=== PATIENT | male | born 1995 | race Caucasian/White ===

== ENCOUNTER 2019-05-07 06:27 | Emergency (ER) | payer MEDICAID ==
[~2019-05-07] VITALS: Ht 182.9 cm; Wt 77.3 kg
[2019-05-07 06:35] VITALS: BP 130/77
[2019-05-07] MEDS ORDERED: PRED20TA PO (07:39)
== END 2019-05-07 07:51 | disposition home or self-care (01) ==
LOC: ER 06:29
DX: M54.5 Low back pain (principal); G89.29 Other chronic pain; Z88.0 Allergy status to penicillin; Z79.899 Other long term (current) drug therapy
CPT/HCPCS: 99283

== ENCOUNTER 2019-07-18 10:07 | Emergency (ER) | payer MEDICAID ==
[~2019-07-18] VITALS: Ht 182.9 cm; Wt 80.0 kg
[2019-07-18 11:04] LABS: BASOPHILS % (AUTO) 0.2 % (0-1); EOSINOPHILS # (AUTO) 0.2 X10'3 (0-0.9); EOSINOPHILS % (AUTO) 2.3 % (0-6); HEMATOCRIT 44.5 % (42.0-52.0); LYMPHOCYTES # (AUTO) 0.8 X10'3 (1.1-4.8); LYMPHOCYTES % (AUTO) 10.3 % (21-51); MEAN CORPUSCULAR HEMOGLOBIN 28.8 PG (27.0-31.0); MEAN CORPUSCULAR HGB CONC 33.8 g/dL (33.0-36.5); MEAN CORPUSCULAR VOLUME 85.3 FL (78-98); MEAN PLATELET VOLUME 8.6 FL (7.4-10.4); MONOCYTES # (AUTO) 0.9 X10'3 (0-0.9); MONOCYTES % (AUTO) 12.5 % (2-12); NEUTROPHILS # (AUTO) 5.6 X10'3 (1.8-7.7); NEUTROPHILS % (AUTO) 74.7 % (42-75); PLATELET COUNT 187 X10'3 (140-440); RED BLOOD COUNT 5.22 X10'6 (4.70-6.10); RED CELL DISTRIBUTION WIDTH 12.7 % (11.5-14.5); WHITE BLOOD COUNT 7.4 X10'3 (4.5-11.0)
[2019-07-18] MEDS ORDERED: CLIN150C2 PO (12:12)
[2019-07-18] MEDS ORDERED: SULF1TAB49 PO (12:12)
[2019-07-18 13:04] VITALS: BP 104/72
== END 2019-07-18 12:40 | disposition home or self-care (01) ==
LOC: ER 10:08
DX: L03.116 Cellulitis of left lower limb (principal); G89.29 Other chronic pain; Z88.0 Allergy status to penicillin; Z79.899 Other long term (current) drug therapy
CPT/HCPCS: 36415; 85025; 99283

== ENCOUNTER 2020-04-13 11:49 | Emergency (ER) | payer MEDICAID ==
[~2020-04-13] VITALS: Ht 182.9 cm; Wt 81.8 kg
--- NOTE | 2020-04-13 12:11 | NUR ---
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
[2020-04-13] MEDS ORDERED: normal saline 1000ML IV soln IVB ONE (12:20)
[2020-04-13] MEDS ORDERED: ondansetron/PF 4mg/2ml inj IV ONE (12:20)
[2020-04-13] MEDS ORDERED: ONDA4TAB12 PO (12:43)
[2020-04-13] MEDS ORDERED: OMEP40CA13 PO (12:43)
--- NOTE | 2020-04-13 13:18 | NUR ---
PT. REFUSED LABS, PT. REFUSED IV AND NORMAL SALINE. PT. REFUSED TO TAKE HIS ZOFRAN. PT. GIVEN RX FOR ZOFRAN AND PRILOSEC HE STATES HE WILL FILL HIS RX AND DO CLEAR LIQUIDS FOR 24 HOURS.
[2020-04-13 13:21] VITALS: BP 122/78
== END 2020-04-13 13:28 | disposition home or self-care (01) ==
LOC: ER 11:50
DX: K29.70 Gastritis, unspecified, without bleeding (principal); G89.29 Other chronic pain; Z88.0 Allergy status to penicillin; Z79.899 Other long term (current) drug therapy
CPT/HCPCS: 99283

== ENCOUNTER 2021-02-14 11:16 | Emergency (ER) | payer MEDICAID ==
[~2021-02-14] VITALS: Ht 182.9 cm; Wt 77.3 kg
[~2021-02-14 11:16] MED LIST: ONDA4TAB12 PO
[2021-02-14] MEDS ORDERED: dicyclomine 10 MG capsule PO ONE (12:50)
[2021-02-14] MEDS ORDERED: ondansetron 4mg rapidly disintigrating tab PO ONE (12:50)
[2021-02-14] MEDS ORDERED: mag hydrox/Alum hydrox/simeth 30ml oral suspension PO ONE (12:50)
[2021-02-14 13:07] VITALS: BP 111/62
[2021-02-14 13:17] LABS: BASOPHILS % (AUTO) 0.4 % (0-1); EOSINOPHILS # (AUTO) 0.1 X10'3 (0-0.9); EOSINOPHILS % (AUTO) 2.3 % (0-6); HEMATOCRIT 44.7 % (42.0-52.0); HEMOGLOBIN 15.1 g/dl (14.0-17.9); LYMPHOCYTES # (AUTO) 0.9 X10'3 (1.1-4.8); LYMPHOCYTES % (AUTO) 16.2 % (21-51); MEAN CORPUSCULAR HEMOGLOBIN 29.1 PG (27.0-31.0); MEAN CORPUSCULAR HGB CONC 33.8 g/dL (33.0-36.5); MEAN CORPUSCULAR VOLUME 86.3 FL (78-98); MEAN PLATELET VOLUME 8.1 FL (7.4-10.4); MONOCYTES # (AUTO) 0.6 X10'3 (0-0.9); NEUTROPHILS # (AUTO) 3.8 X10'3 (1.8-7.7); NEUTROPHILS % (AUTO) 70.1 % (42-75); PLATELET COUNT 217 X10'3 (140-440); RED BLOOD COUNT 5.18 X10'6 (4.70-6.10); WHITE BLOOD COUNT 5.4 X10'3 (4.5-11.0)
[2021-02-14 13:27] LABS: ALANINE AMINOTRANSFERASE 23 U/L (12-78); ALBUMIN 4.4 G/DL (3.4-5.0); ALBUMIN/GLOBULIN RATIO 1.2 (1.1-1.5); ALKALINE PHOSPHATASE 69 IU/L (46-116); ANION GAP 6 (8-16); ASPARTATE AMINO TRANSFERASE 17 U/L (10-37); BILIRUBIN,TOTAL 0.5 MG/DL (0.1-1.0); BLOOD UREA NITROGEN 7 MG/DL (7-18); BUN/CREATININE RATIO 11.7 (5.4-32.0); CALCIUM 8.8 MG/DL (8.5-10.1); CHLORIDE 105 MMOL/L (99-107); GLUCOSE 86 MG/DL (70-104); LIPASE < 50 U/L (73-393); POTASSIUM 3.8 MMOL/L (3.5-5.1); SODIUM 142 MMOL/L (135-145); TOTAL CARBON DIOXIDE 31.2 MMOL/L (24-32); TOTAL PROTEIN 8.1 G/DL (6.4-8.2); eGFR > 90 ML/MIN
== END 2021-02-14 14:07 | disposition home or self-care (01) ==
LOC: ER 11:17
DX: R11.2 Nausea with vomiting, unspecified (principal); R10.84 Generalized abdominal pain; G89.29 Other chronic pain; F12.90 Cannabis use, unspecified, uncomplicated; Z72.89 Other problems related to lifestyle; Z88.0 Allergy status to penicillin; Z79.899 Other long term (current) drug therapy
CPT/HCPCS: 36415; 80053; 83690; 85025; 99283

== ENCOUNTER 2022-01-06 17:43 | Emergency (ER) | payer MEDICAID ==
[~2022-01-06] VITALS: Ht 182.9 cm; Wt 76.8 kg
[2022-01-06 18:44] VITALS: BP 114/62
[2022-01-06] MEDS ORDERED: CLIN150C2 PO (20:18)
== END 2022-01-06 20:35 | disposition home or self-care (01) ==
LOC: ER 17:43
DX: K04.7 Periapical abscess without sinus (principal); G89.29 Other chronic pain; M54.9 Dorsalgia, unspecified; F12.10 Cannabis abuse, uncomplicated; Z88.0 Allergy status to penicillin
CPT/HCPCS: 99283

== ENCOUNTER 2022-08-30 13:32 | Emergency (ER) | payer MEDICAID | END 2022-08-30 15:30 | disposition left against medical advice (07) | LOC: ER 13:33 | DX: T14.8XXA Other injury of unspecified body region, initial encounter (principal); Z53.21 Procedure and treatment not carried out due to patient leaving prior to being seen by health care provider; X58.XXXA Exposure to other specified factors, initial encounter; Y93.89 Activity, other specified; Y92.89 Other specified places as the place of occurrence of the external cause; Y99.8 Other external cause status ==

== ENCOUNTER 2022-12-07 15:26 | Emergency (ER) | payer MEDICAID ==
[~2022-12-07] VITALS: Ht 182.9 cm; Wt 79.0 kg
[2022-12-07 15:37] VITALS: BP 130/70
[2022-12-07 16:00] LABS: CLARITY,URINE SLIGHTLY CLOUDY (Clear); COLOR,URINE YELLOW (Yellow); GLUCOSE, URINE NEGATIVE (Neg); KETONES,URINE NEGATIVE (Neg); LEUKOCYTE ESTERASE ,URINE NEGATIVE (Neg); NITRITES, URINE NEGATIVE (Neg); OCCULT BLOOD,URINE NEGATIVE (Neg); PH,URINE 7.5 (4.8-8.0); PROTEIN,URINE NEGATIVE (Neg); UROBILINOGEN,URINE 0.2 E.U/dL (0.2-1.0)
[2022-12-07 16:15] LABS: UA COLLECTION TYPE CLN CATCH MIDSTREAM
[2022-12-07 16:16] LABS: AMORPHOUS URATES 4+; BACTERIA,URINE NONE SEEN /HPF (Neg); RBC,URINE NONE SEEN /HPF (0-2); SQUAMOUS EPITHELIAL CELL,UR NONE SEEN /LPF (FEW); WBC,URINE NONE SEEN /HPF (0-4)
[2022-12-07 16:32] LABS: BASOPHILS % (AUTO) 0.2 % (0-1); EOSINOPHILS # (AUTO) 0.1 X10'3 (0-0.9); EOSINOPHILS % (AUTO) 1.1 % (0-6); HEMATOCRIT 42.8 % (42.0-52.0); HEMOGLOBIN 14.4 g/dl (14.0-17.9); LYMPHOCYTES # (AUTO) 1.1 X10'3 (1.1-4.8); LYMPHOCYTES % (AUTO) 14.6 % (21-51); MEAN CORPUSCULAR HEMOGLOBIN 28.3 PG (27.0-31.0); MEAN CORPUSCULAR HGB CONC 33.6 g/dL (33.0-36.5); MEAN CORPUSCULAR VOLUME 84.2 FL (78-98); MEAN PLATELET VOLUME 8.1 FL (7.4-10.4); MONOCYTES # (AUTO) 0.6 X10'3 (0-0.9); MONOCYTES % (AUTO) 7.6 % (2-12); NEUTROPHILS % (AUTO) 76.5 % (42-75); PLATELET COUNT 218 X10'3 (140-440); RED BLOOD COUNT 5.08 X10'6 (4.70-6.10); WHITE BLOOD COUNT 7.8 X10'3 (4.5-11.0)
[2022-12-07 16:46] LABS: ALANINE AMINOTRANSFERASE 29 U/L (12-78); ALBUMIN 4.3 G/DL (3.4-5.0); ALBUMIN/GLOBULIN RATIO 1.2 (1.1-1.5); ALKALINE PHOSPHATASE 84 IU/L (46-116); ANION GAP 6 (8-16); ASPARTATE AMINO TRANSFERASE 22 U/L (10-37); BILIRUBIN,TOTAL 0.5 MG/DL (0.1-1.0); BLOOD UREA NITROGEN 10 MG/DL (7-18); BUN/CREATININE RATIO 14.5 (5.4-32.0); CHLORIDE 104 MMOL/L (99-107); CREATININE 0.69 MG/DL (0.60-1.10); GLUCOSE 97 MG/DL (70-104); LIPASE < 50 U/L (73-393); POTASSIUM 3.9 MMOL/L (3.5-5.1); SODIUM 139 MMOL/L (135-145); TOTAL CARBON DIOXIDE 28.9 MMOL/L (24-32); eGFR > 90 ML/MIN
--- NOTE | 2022-12-07 20:32 | NUR ---
Called patient. Not in lobby
== END 2022-12-07 20:45 | disposition left against medical advice (07) ==
LOC: ER 15:26
DX: M79.18 Myalgia, other site (principal); R11.10 Vomiting, unspecified; Z53.21 Procedure and treatment not carried out due to patient leaving prior to being seen by health care provider
CPT/HCPCS: 36415; 80053; 81001; 83690; 85025

== ENCOUNTER 2025-08-31 03:52 | Emergency (ER) | payer MEDICAID ==
[~2025-08-31] VITALS: Ht 195.6 cm; Wt 90.9 kg
[~2025-08-31 03:52] MED LIST changes: +ONDA-243 PO; -ONDA4TAB12 PO
[2025-08-31 03:56] VITALS: BP 109/82; PULSE 74; O2SAT 94
--- NOTE | 2025-08-31 04:06 | Physician Documentation ---
HPI ~ General Chief Complaint: Tooth Problem Stated Complaint: TOOTH PAIN Time Seen by MD: 04:06 Primary Medical Doctor: NO PMD History of Present Illness HPI Comment 30-year-old male presenting with right-sided dental pain He tells me that he has a broken tooth in the right lower jaw. He has had increased pain and swelling over the past 3 days. He states that the pain and swelling extends down to his right jaw. He has been taking ibuprofen and Tylenol without much relief. He has a history of infection in the past requiring antibiotics. No definite fevers. No difficulty swallowing or significant neck swelling. He has an allergy to penicillins. He has taken amoxicillin in the past without a reaction Medication Reconciliation Allergies: Coded Allergies: Penicillins (Verified Allergy, Unknown, 08/31/25) Scheduled Amox Tr/Potassium Clavulanate (Augmentin 875-125 Tablet), 1 TAB PO Q12H Scheduled PRN ONDANSETRON ODT 4mg tablet (Ondansetron Odt), 1 TABLET PO Q6H PRN for nausea/vomiting Past Medical History Past Medical History: Chronic Back Pain Past Surgical History: no surgical history Alcohol Use: Occasionally Drug Use: marijuana Lives In: Home Occupation: employed Review of Systems ENT: Reports: mouth pain, mouth swelling Physical Exam Vital Signs: Temperature: 97.3, Source: Temporal, Heart Rate: 74, Respiratory Rate: 16, BP: 109/82, Pulse Oximetry: 94, Weight: 90.910 Oxygen Flow Rate: 0 Physical Exam General: This is an uncomfortable appearing but otherwise healthy young male, partner at bedside HEENT: Atraumatic, oropharynx is moist. On the right lower jaw, the patient has a broken tooth, with mild surrounding swelling but no evidence of periapical abscess. No posterior oropharyngeal swelling or swelling under the tongue On external exam, the patient has generalized tenderness on palpation of the lower jaw cheek, but no significant swelling or overlying skin changes Heart: Regular rate and rhythm, normal-appearing peripheral perfusion Lungs: normal work of breathing, normal oxygen saturation on room air Neuro: Alert and oriented Psychiatric: Anxious and appears tired Progress Results/Orders Results/Orders Completed Orders - CHRISTY TOUSSAINT MD Amox Tr/Potassium Clavulanate (Augmentin (08/31/25 04:15) Vital Signs 08/31/25 03:56 Temp 97.3 Pulse 74 Resp 16 B/P (MAP) 109/82 Pulse Ox 94 O2 Flow Rate 0 Medical Decision Making Additional information obtaine: N/A Findings na Differential Dx:Considerations: Include: Facial Cellulitis, Periapical abscess, Peridontal abscess, Tooth Fracture Additional Comment The patient presents with dental pain. On exam he has findings consistent with a dental infection and possibly mild developing facial cellulitis. No evidence of abscess. No evidence of neck infection or other dangerous complication. I did offer a dental block with the patient declined. He was given a dose of Toradol. He will be treated with Augmentin. He does have a penicillin allergy but told me that he had taken amoxicillin in the past without having an allergic reaction. He was given home care instructions and return precautions. Otherwise he will follow up with a dentist. Departure Time of Disposition: 04:16 Disposition: 01 HOME / SELF CARE / HOMELESS Impression: Primary Impression: Dental infection Condition: Stable Discharge Instructions: Dental Pain Referrals: NO PRIMARY CARE PROVIDER (PCP) Prescriptions Amox Tr/Potassium Clavulanate (Augmentin 875-125 Tablet) 1 Each Tablet 1 TAB PO Q12H for 7 Days, #14 TAB Prov: CHRISTY TOUSSAINT MD 08/31/25 Education Educated: Patient Educated regarding: diagnosis, treatment, need for follow up Signature Scribe Signature: darline Attestation: CHRISTY Cm MD Aug 31, 2025 04:06
[2025-08-31] MEDS ORDERED: AMOX-117 PO (04:15)
[2025-08-31 04:26] VITALS: RESP 22
[2025-08-31] MEDS: ketorolac trometh 15mg/ml vial 15 MG/ML ML IM ONE (04:26)
[2025-08-31] MEDS: amox tr/potassium clavulanate 875/125mg TAB PO ONE (04:34)
[2025-08-31] MEDS ORDERED: CLIN-224 PO (04:35)
[2025-08-31 04:41] VITALS: TEMP 97.3
== END 2025-08-31 04:41 | disposition home or self-care (01) ==
LOC: ER 03:53
DX: K04.7 Periapical abscess without sinus (principal); F12.90 Cannabis use, unspecified, uncomplicated; Z88.0 Allergy status to penicillin
CPT/HCPCS: 96372; 99283; J1885